=== PATIENT | female | born 1960 | race Caucasian/White ===

== ENCOUNTER → 2019-07-20 09:12 | Outpatient (CLI) | payer OTHER, MEDICAID, SELFPAY ==
--- NOTE | 2019-07-20 | DI.US.S_ITS ---
LIMITED ULTRASOUND OF LEFT BREAST: 07/20/2019 CLINICAL: 2 yrs post bilat mastectomy (BRCA, no malig). Palpable lateral brst lumps x 2 weeks. Comparison is made to exam dated: 07/20/2019 [facility]. Color flow and real-time ultrasound of the left breast upper outer quadrant were performed on the areas of interest. There are multiple oval cysts with smooth internal ewing in the left chest wall fat reconstruction site in the upper outer quadrant. These oval cysts are anechoic with well-defined boundaries and posterior acoustic enhancement. The largest cyst measures up to 1.0 x 0.8 x 1.0 cm. These correlate as palpated. Color flow imaging demonstrates that there is no vascularity present. IMPRESSION: BENIGN There is no sonographic evidence of malignancy. The multiple oval cysts in the left chest wall are benign. Clinicall followup is recommended to demonstrate stability. This exam was interpreted at Station ID: [id number]. Electronically Signed By: Jonatan Kaye M.D. ddleticia/:07/21/2019 08:21:21 letter sent: Clinical Evaluation Ultrasound BI-RADS: 2 Benign
--- NOTE | 2019-07-20 | DI.US.S_ITS ---
LIMITED ULTRASOUND OF RIGHT BREAST: 07/20/2019 CLINICAL: History bilat mastectomy 2 yrs ago (BRCA, no malignancy). Palpable bilateral lateral lumps x 2 weeks. No prior exams were available for comparison. Color flow and real-time ultrasound of the right breast upper outer quadrant were performed on the areas of interest. There are multiple oval cysts with smooth internal ewing in the upper outer quadrant of the right chest wall in the area of prior reconstruction. These oval cysts are anechoic with well-defined boundaries and posterior acoustic enhancement. The largest measures up to 0.8 x 0.5 x 0.6 cm. These correlate as palpated. Color flow imaging demonstrates that there is no vascularity present. No discrete solid mass identified. IMPRESSION: BENIGN There is no sonographic evidence of malignancy. The multiple oval cysts in the area of palpable abnormality are consistent with simple cysts and are benign. Clinical followup is recommended. This exam was interpreted at Station ID: [id number]. Electronically Signed By: Jonatan Kaye M.D. ddp/:07/20/2019 10:51:34 letter sent: Clinical Evaluation Ultrasound BI-RADS: 2 Benign
== END ==
PROVIDERS: PCP Family Medicine; Visit Provider Nurse Practitioner Family
DX: N60.01 Solitary cyst of right breast (principal); L72.8 Other follicular cysts of the skin and subcutaneous tissue; Z90.13 Acquired absence of bilateral breasts and nipples
CPT/HCPCS: 76642

== ENCOUNTER → 2021-02-24 12:41 | Outpatient (CLI) | payer OTHER, MEDICAID, SELFPAY ==
--- NOTE | 2021-02-24 | DI.US.S_ITS ---
LIMITED ULTRASOUND OF RIGHT BREAST AND AXILLA: 02/24/2021 CLINICAL: Palpable multiple right breast lumps. Comparison is made to exam dated: 07/20/2019 [facility]. Color flow and real-time ultrasound of the right breast outer aspect and axilla regions were performed on the areas of interest. There is a 3 cm x 1.4 cm x 2 cm oval cyst in the right breast at 6 o'clock middle depth. This oval cyst is anechoic with a small hypoechoic internal nodular component measuring up to approximately 1 cm. This correlates as palpated. Color flow imaging demonstrates that there is no vascularity present. A few additional simple appearing cysts are noted in the upper outer quadrant with the largest measuring up to 0.6 cm. No suspicious enlarged lymph nodes were seen sonographically in the right axilla. IMPRESSION: PROBABLY BENIGN The 3 cm x 1.4 cm x 2 cm oval cyst in the right breast resembles fat necrosis and is probably benign. A follow-up ultrasound in 6 months is recommended to demonstrate stability. This exam was interpreted at Station ID: [id number]. Electronically Signed By: Jonatan Kaye M.D. ddp/:02/24/2021 16:27:52 Entry: - 02/25/2021 11:42:57 Ultrasound BI-RADS: 3 Probably benign
--- NOTE | 2021-02-24 | DI.US.S_ITS ---
LIMITED ULTRASOUND OF LEFT BREAST AND AXILLA: 02/24/2021 CLINICAL: Palpable multiple left breast lumps. Comparison is made to exam dated: 07/20/2019 [facility]. Color flow and real-time ultrasound of the left breast axilla were performed on the areas of interest. There is a 4.7 cm x 2.1 cm x 2.9 cm oval cyst with a thickened wall in the left breast at 4 o'clock middle depth. This oval cyst is anechoic and hypoechoic with a well-defined boundary and posterior acoustic enhancement. This correlates as palpated. Color flow imaging demonstrates that there is no vascularity present. A few simple appearing cysts are noted in the upper outer quadrant measuring up to 0.8 cm. No suspcious enlarged lymph nodes. There is a small oval node measuring up to 1 x 0.8 x 0.8 cm with effacement of the fatty hilum. IMPRESSION: SUSPICIOUS OF MALIGNANCY The 4.7 cm x 2.1 cm x 2.9 cm oval cyst in the left breast may represent fat necrosis but given reported increase in size and clinical history, malignancy cannot be excluded. An ultrasound guided biopsy is recommended. Normal sized lymph node in the left axilla with effacement of the fatty hilum. Recommend attention on followup ultrasound at 6 months. This exam was interpreted at Station ID: [id number]. Electronically Signed By: Jonatan cisse/:02/24/2021 16:33:24 letter sent: Biopsy Required Ultrasound BI-RADS: 4 Suspicious for malignancy
== END ==
PROVIDERS: PCP Nurse Practitioner Family; Referring Provider Nurse Practitioner Family; Visit Provider Nurse Practitioner Family
DX: N63.10 Unspecified lump in the right breast, unspecified quadrant (principal); N63.20 Unspecified lump in the left breast, unspecified quadrant; N60.02 Solitary cyst of left breast; N60.01 Solitary cyst of right breast; Z85.3 Personal history of malignant neoplasm of breast
CPT/HCPCS: 76642

== ENCOUNTER → 2021-03-14 12:43 | Outpatient (CLI) | payer OTHER, MEDICAID, SELFPAY ==
--- NOTE | 2021-03-14 | PATH_ITS ---
[facility] Accession Number: [id number] . 01 Material submitted: . breast - LEFT BREAST @3:30 . 02 Diagnosis: Left Breast, 3:30 o'clock, Needle Core Biopsies: Fat necrosis with abundant calcifications. No definite breast parenchyma identified. No evidence of neoplasm. [facility] 03/18/2021 1411 Local . 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 Bunch has reviewed this case and agrees with the diagnosis. . 02 Electronically signed: . Darren Marte MD, PhD, Pathologist NPI- [id number] . 01 Gross description: . The specimen is received in formalin and labeled left breast 330 1 cm FN breast core biopsy. It consists of a 2.9 x 2.2 x 0.4 cm aggregate of coarsely lobulated, yellow-mendes, focally hemorrhagic fibroadipose tissue fragments. No distinguishing features are grossly apparent. The specimen is filtered and submitted entirely. . Summary of sections: A1-A2 = Left breast core biopsy, filtered, aggregate. ([id number]) /[facility] 03/15/2021 1851 Local . 02 Pathologist provided ICD-10: N60.02, N64.1 . 02 CPT . 759395 Performed at: 01 [facility] [address], [place], [place] [id number] MD Jonatan Alonzo MD Phone: [phone] Performed at: 02 [facility] [address] [place], [place] [id number] MD Joanne Bansal MD Phone: [phone]
--- NOTE | 2021-03-14 | DI.US.S_ITS ---
ULTRASOUND GUIDED BIOPSY LEFT BREAST WITH MARKING DEVICE INSERTED AND POST DIGITAL MAMMOGRAPHIC IMAGIN03/14/2021 CLINICAL: Left breast lesion. PATIENT CONSENT: Risks (minor bleeding, infection, vasovagal reaction and repeat procedure), benefits and alternatives were explained to the patient and written informed consent was obtained. Correlation is made to exams dated: 02/24/2021 ultrasound and 07/20/2019 [facility]. An ultrasound guided biopsy using real-time ultrasound was performed for the concerning 4.7 cm x 2.1 cm x 2.9 cm oval mass located in the left breast at 4 o'clock middle depth. This was described on the previous mammography and ultrasound reports. The skin was prepped in the usual manner. Local anesthetic was administered to the access site. A small incision was made in the breast. The abnormality was approached from the lateral aspect. A 12 gauge biopsy needle was placed adjacent to the abnormality under ultrasound guidance. Once the needle was documented to be in the correct location, three specimens were obtained using a BARD biopsy device. A clip was inserted into the biopsy cavity. A skin closure strip and a sterile dressing were applied to the access site. Post procedure digital mammographic imaging demonstrates the location device at the targeted area. The specimens were sent to the laboratory for pathological analysis. IMPRESSION: ULTRASOUND GUIDED BIOPSY BENIGN Ultrasound guided biopsy of the 4.7 cm x 2.1 cm x 2.9 cm mass in the left breast at 4 o'clock middle depth was successful. Pathology indicates benign fat necrosis (FN). Pathology results are concordant with ultrasound findings. A follow-up ultrasound in 6 months is recommended to demonstrate stability of the left axillary lymph node and the contralateral right breast cyst. Future imaging is recommended as follows: 08/26/2021 ultrasound. This exam was interpreted at Station ID: [id number]. Umberto zuleta,ddp/:03/19/2021 16:46:34
== END ==
PROVIDERS: PCP Nurse Practitioner Family; Referring Provider Nurse Practitioner Family; Visit Provider Nurse Practitioner Family
DX: N63.23 Unspecified lump in the left breast, lower outer quadrant (principal); N64.1 Fat necrosis of breast; N60.01 Solitary cyst of right breast
CPT/HCPCS: 19083

== ENCOUNTER → 2021-12-30 10:44 | Outpatient (CLI) | payer OTHER, MEDICAID, SELFPAY ==
--- NOTE | 2021-12-30 | DI.US.S_ITS ---
ULTRASOUND OF LEFT BREAST: 12/30/2021 CLINICAL: Patient returns for a 6 month follow up of the left breast. Comparison is made to exams dated: 03/14/2021 ultrasound biopsy, 02/24/2021 ultrasound, and 07/20/2019 ultrasound [facility]. Color flow ultrasound of the left breast was performed on the areas of interest. Sexton scale images of the real-time examination were reviewed. There is a 3.5 cm x 1.8 cm x 2.9 cm complicated cyst in the left breast at 5 o'clock posterior depth. This complicated cyst is of mixed echogenicity with posterior acoustic enhancement. This abnormality is decreased in size from the 02/24/21 study. IMPRESSION: PROBABLY BENIGN The 3.5 cm x 1.8 cm x 2.9 cm complicated cyst in the left breast most likely fat necrosis and is probably benign. A follow-up ultrasound in 12 months is recommended. This exam was interpreted at Station ID: [id number]. Electronically Signed By: Vivien kearns/:12/30/2021 12:11:23 letter sent: Followup Recommended Ultrasound BI-RADS: 3 Probably benign
--- NOTE | 2021-12-30 | DI.US.S_ITS ---
ULTRASOUND OF RIGHT BREAST: 12/30/2021 CLINICAL: Patient returns for a 6 month follow up of the right breast. Comparison is made to exams dated: 02/24/2021 ultrasound and 07/20/2019 ultrasound - [facility]. Color flow ultrasound of the right breast was performed on the areas of interest. Sexton scale images of the real-time examination were reviewed. There is a stable 2.2 cm x 1.3 cm x 3.1 cm complicated cyst in the right breast at 6 o'clock posterior depth. IMPRESSION: PROBABLY BENIGN The stable 2.2 cm x 1.3 cm x 3.1 cm complicated cyst in the right breast likely represents fat necrosis and is probably benign. A follow-up ultrasound in 12 months is recommended. This exam was interpreted at Station ID: [id number]. Electronically Signed By: Vivien kearns/:12/30/2021 12:13:29 letter sent: Followup Recommended Ultrasound BI-RADS: 3 Probably benign
== END ==
PROVIDERS: PCP Nurse Practitioner Family; Referring Provider Nurse Practitioner Family; Visit Provider Nurse Practitioner Family
DX: N60.01 Solitary cyst of right breast; N60.02 Solitary cyst of left breast; R92.8 Other abnormal and inconclusive findings on diagnostic imaging of breast
CPT/HCPCS: 76642